=== PATIENT | female | born 1975 | race Caucasian/White ===

== ENCOUNTER 2024-05-19 16:41 | Outpatient (CLI) | payer OTHER, SELFPAY ==
--- NOTE | 2024-05-19 17:20 | CRLHL7_ITS ---
For Patients: As a result of the Century Cures Act, medical imaging exams and procedure reports are released immediately into your electronic medical record. You may view this report before your referring provider. If you have questions, please contact your health care provider. BILATERAL SCREENING MAMMOGRAM WITH COMPUTER-AIDED DETECTION AND TOMOSYNTHESIS TECHNIQUE: CC and MLO views were obtained. These mammographic images have been obtained using full-field digital technique. These mammographic images were interpreted with the benefit of computer-aided detection. Breast Tomosynthesis was used in this interpretation. COMPARISON FILM: 10/11/16. FINDINGS: The breasts are heterogeneously dense, which may obscure small masses. IMPRESSION: There is no radiographic evidence for malignancy. ASSESSMENT: BI-RADS Category 1: Negative RECOMMENDATION: Routine screening mammogram in 1 year. A lay language report of this examination will be provided to the patient. Arden Gilliland M.D. Diagnostic Radiologist [email or web address] SP/Dictated by: Arden Gilliland MD @ 05/21/2024 11:07:00 AM (Electronically Signed)
== END 2024-05-19 16:42 | disposition home or self-care (01) ==
LOC: MAMMO 16:43
PROVIDERS: Visit Provider Obstetrics & Gynecology
DX: Z12.31 Encounter for screening mammogram for malignant neoplasm of breast (principal); R92.2 Inconclusive mammogram
CPT/HCPCS: 77063; 77067

== ENCOUNTER 2024-06-18 09:00 | Outpatient (CLI) | payer OTHER, SELFPAY ==
[2024-06-20 05:17] LABS: HPV Source Cervical; HPV, High Risk by TMA Not Detected
== END 2024-06-18 09:01 | disposition home or self-care (01) ==
PROVIDERS: Visit Provider Obstetrics & Gynecology
DX: Z12.4 Encounter for screening for malignant neoplasm of cervix (principal); Z13.220 Encounter for screening for lipoid disorders; Z13.1 Encounter for screening for diabetes mellitus
CPT/HCPCS: 80061; 82947; 87624; 87625; 88141; 88142

== ENCOUNTER 2024-07-03 08:59 | Outpatient (CLI) | payer OTHER, SELFPAY ==
--- NOTE | 2024-07-03 09:15 | CRLHL7_ITS ---
For Patients: As a result of the Cures Act, medical imaging exams and procedure reports are released immediately into your electronic medical record. You may view this report before your referring provider. If you have questions, please contact your health care provider. RIGHT BREAST ULTRASOUND CLINICAL HISTORY: RIGHT breast lump. COMPARISON: Mammogram 05/19/2024. TECHNIQUE: Real-time ultrasound imaging of RIGHT breast with imaging documentation. FINDINGS: Targeted sonogram RIGHT breast 9 o`clock 3 cm from the nipple performed. In this location, there is a circumscribed anechoic cyst with increased through-transmission measuring 3.1 x 2.0 x 2.6 cm. IMPRESSION: Benign simple cyst RIGHT breast 9 o`clock 3 cm from the nipple measuring 3.1 cm. No suspicious findings. RECOMMENDATIONS: Routine screening mammography. Results and recommendations were discussed with the patient at the time of the exam. BI-RADS Category 2: Benign A lay language report of this examination will be provided to the patient. Dictated by Arden Gilliland MD @ 07/03/2024 11:44:16 AM /Dictated by: Arden Gilliland MD @ 07/03/2024 11:44:00 AM (Electronically Signed)
== END 2024-07-03 09:00 | disposition home or self-care (01) ==
LOC: US 09:00
PROVIDERS: Visit Provider Obstetrics & Gynecology
DX: N63.10 Unspecified lump in the right breast, unspecified quadrant (principal); N60.01 Solitary cyst of right breast
CPT/HCPCS: 76642

== ENCOUNTER 2024-07-27 07:57 | Outpatient (CLI) | payer OTHER, SELFPAY ==
--- NOTE | 2024-07-27 09:35 | W.ANESCHARGE ---
Anesthesia Charges Start Date/Time Anesthesia Start Date: 07/27/24 Anesthesia Start Time: 09:15 Stop Date/Time Anesthesia Stop Date: 07/27/24 Anesthesia Stop Time: 09:35
--- NOTE | 2024-07-27 09:39 | W.ANESCHARGE ---
Anesthesia Charges Start Date/Time Anesthesia Start Date: 07/27/24 Anesthesia Start Time: 09:15 Stop Date/Time Anesthesia Stop Date: 07/27/24 Anesthesia Stop Time: 09:35
== END 2024-07-27 07:58 | disposition home or self-care (01) ==
LOC: OP CLINIC 07:58
PROVIDERS: Visit Provider Surgery
DX: Z12.11 Encounter for screening for malignant neoplasm of colon (principal)
CPT/HCPCS: 00812; 45378; J2704